=== PATIENT | female | born 1930 | race African-American/Black ===

== ENCOUNTER 2016-10-10 16:23 | Emergency (ER) | payer OTHER ==
[~2016-10-10] VITALS: Ht 152.4 cm; Wt 61.2 kg
[~2016-10-10 16:23] MED LIST: ASPIR 8181 MG PO; CATAPRES-TTS 10.1 M1 TRANSDERM; CATAPRES0.1 MG PO; CENTRUM SILVER1 EAC4 PO; EFFEXOR XR37.5 MG PO; ENOXAPARIN30 MG/0.1 SUBQ; IBUPROFEN 200200 M1 PO; INDAPAMIDE2.5 MG PO; LUTEIN20 MG PO; METAMUCIL PAC1 UDPKT PO; NORVASC10 MG PO; REMERON15 MG PO; TRAZODONE HCL100 MG PO; ULTRACET TABLET1 TAB PO; VITAMIN D 5050000 I1 PO; WELLBUTRIN 100100 MG PO; WELLBUTRIN XL300 MG PO; XALATAN2.5 ML OPHTHALMIC
[2016-10-10] MEDS ORDERED: CELEBREX 200 M200 M1 PO (16:38)
[2016-10-10] MEDS ORDERED: NORCO 5-325 TA1 EACH PO (17:57)
== END 2016-10-10 18:00 | disposition home or self-care (01) ==
LOC: ER 16:23
DX: M54.5 Low back pain (principal); M25.551 Pain in right hip; F32.9 Major depressive disorder, single episode, unspecified; I10 Essential (primary) hypertension; F10.99 Alcohol use, unspecified with unspecified alcohol-induced disorder; Z85.3 Personal history of malignant neoplasm of breast

== ENCOUNTER → 2017-01-25 | Outpatient (CLI) | payer OTHER ==
[~2017-01-25] VITALS: Ht 157.5 cm; Wt 59.0 kg
[~2017-01-25] MED LIST changes: +ASPIRIN81 M2 PO; +CELEBREX 200 M200 M1 PO; +FLUOXETINE HCL10 M1 PO; +NORCO 5-325 TA1 EACH PO; +THERA TEARS15 ML OPHTHALMIC; +TRAMADOL 50 MG50 MG PO
--- NOTE | ~2017-01-25 | HPC ---
[facility] [place] [address] PAIN MANAGEMENT CONSULTATION Name: LIBRADOMENIC PHAM Room #: REG [facility] Randal.#: [id number] Admission: 01/25/17 Attend Phys: Charisma Chahal MD Discharge: Date of : 30 Report #: [id number] THIS REPORT FOR: //name// CC: Charisma Marte DATE OF SERVICE: 01/25/2017 PRIMARY CARE PHYSICIAN: Meche Marte M.D. CHIEF COMPLAINT: Pain in the back with pain radiating down into the ankles. HISTORY OF PRESENT ILLNESS: The patient is an 86-year-old female who has been referred to the Pain Clinic for evaluation. She has been experiencing pain which has been quite problematic. Radiates down her low back area into the left leg. She had a fall in 2017. She experienced some pain in her right hip after the fall. She has found that ice and analgesics sometimes are helpful. Pain is exacerbated with walking. She describes it as an aching sensation with sharp components. She rates it as a 10/10 when it is present. ALLERGIES: No known drug allergies. MEDICATIONS: Tramadol 50 mg b.i.d., Xalatan 0.005 drops ophthalmic, TheraTears drops daily, Remeron 15 mg at bedtime, fluoxetine 10 mg daily, Celebrex ____ capsules 100 mg daily, multivitamins, trazodone 100 mg at bedtime, amlodipine 10 mg daily, aspirin 81 mg tablet. PAST MEDICAL HISTORY: Hypertension, cancer, joint disease/arthritis, depression, hyperlipidemia, anxiety disorder, atherosclerotic heart disease, and anorexia nervosa. PAST SURGICAL HISTORY: Breast lumpectomy. SOCIAL HISTORY: She is a retired teacher. She is not working at this juncture. REVIEW OF SYSTEMS: Fatigue, weakness, wears glasses, glaucoma/cataracts. Otherwise, unremarkable. LABORATORY DATA: 1. CT scan dated 10/10/2016 reveals right hip and back pain after a fall. Impression: No evidence of occult fracture. 2. Moderate arthrosis of both hip joints. 3. Lower lumbar spondylosis. 4. Scattered hepatic cyst, which are incompletely visualized. 5. Examination CT lumbar spine, history of back pain after a fall: [address] [address] PAIN MANAGEMENT CONSULTATION Name: DOMENIC MARTE Room #: REG STANISLAV Devine#: [id number] Admission: 01/25/17 Attend Phys: Charisma Chahal MD Discharge: Date of : 30 Report #: [id number] a. 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 b. Advanced left eccentric degenerative disk disease and disk space narrowing at L3-L4 and L4-L5 with vacuum phenomena. c. Severe degenerative disk disease and disk space narrowing at L5-S1 with prominent right anterior lateral osteophytosis. d. There is advanced central canal and bilateral foraminal stenosis at L4-L5 related to the listhesis and advanced facet arthrosis. e. Less pronounced mild to moderate canal and bilateral foraminal narrowing at L3-L4. PHYSICAL EXAMINATION: Blood pressure 143/80, pulse 60, respiratory rate 16, room air saturation 98%. Height 5 feet 2 inches, weight 130 pounds, BMI is 23. The patient complains of pain and discomfort in the lower portion of her back. Pain is exacerbated when she stands. It improves when she sits. Notes walking and leaning on a cart while shopping is helpful in decreasing pain and discomfort. Experiences pain that is radiating down in the left L5-S1 distribution of her legs. Notes pain and discomfort when standing doing activities of daily living at home. Pain improves after sitting down within about 5 minutes. The patient has some curvature of the lower portion of her spine consistent with that noted in the CT scan. IMPRESSION: 1. Lumbar radiculopathy with pain radiating down the L5-S1 distribution of her legs with history of spinal stenosis. 2. Hypertension. 3. History of breast cancer, status post lumpectomy. 4. Glaucoma. 5. Depression. RECOMMENDATIONS: We discussed treatment options with the patient and her . Risks and benefits of an epidural steroid injection were discussed. Her CT scan was reviewed. A model was used to indicate the area of probable pathology. The patient states that she understands. We will proceed with an epidural steroid injection. Risks and benefits of the procedure were discussed. They include but are not limited to infection, increased muscle soreness, headache, bleeding, nerve damage and worsening of pain. She elects to proceed. PROCEDURE NOTE: The patient was placed in the prone position. Fluoroscopy was used to identify the L5/S1 interspace. This area had been sterilely prepped with Betadine and infiltrated with 0.25% bupivacaine. A total of 80 mg Depo-Medrol, 40 mg triamcinolone and 2 mL of 0.25% bupivacaine was injected. The patient tolerated the procedure well. She will follow up in the near [address] [address] PAIN MANAGEMENT CONSULTATION Name: DOMENIC MARTE Room #: NASIR Tee.#: [id number] Admission: 01/25/17 Attend Phys: Charisma Chahal MD Discharge: Date of : 30 Report #: [id number] future. We would like to thank you for letting us participate in her care. We hope she continues to improve. <ELECTRONICALLY SIGNED> By: Charisma Chahal MD 01/31/17 0945 [id number] [id number] Charisma Chahal MD /BRAD
[2017-01-25 08:13] VITALS: BP 143/80
== END | disposition home or self-care (01) ==
LOC: PAIN 06:56
DX: M54.16 Radiculopathy, lumbar region (principal); M48.061 Spinal stenosis, lumbar region without neurogenic claudication; I10 Essential (primary) hypertension; I25.10 Atherosclerotic heart disease of native coronary artery without angina pectoris; E78.5 Hyperlipidemia, unspecified; M19.90 Unspecified osteoarthritis, unspecified site; H40.9 Unspecified glaucoma; F32.89 Other specified depressive episodes; F41.8 Other specified anxiety disorders; Z98.890 Other specified postprocedural states; Z85.3 Personal history of malignant neoplasm of breast; Z79.899 Other long term (current) drug therapy; Z79.82 Long term (current) use of aspirin

== ENCOUNTER → 2017-02-20 | Outpatient (CLI) | payer OTHER ==
[~2017-02-20] VITALS: Ht 157.5 cm; Wt 71.3 kg
--- NOTE | ~2017-02-20 | HPC ---
[facility] [place] [address] PAIN MANAGEMENT CONSULTATION Name: DOMENIC AMRTE Room #: REG Amanda Tee.#: [id number] Admission: 02/20/17 Attend Phys: Charisma Chahal MD Discharge: Date of : 30 Report #: [id number] THIS REPORT FOR: //name// CC: Charisma Marte DATE OF SERVICE: 02/20/2017 CHIEF COMPLAINT: "It was quite helpful, but I am still having some pain down in the lower back and leg. I would like to get another injection." FOLLOWUP HISTORY: The patient is a very pleasant 86-year-old female who has been seen in the Pain Clinic because of lumbar radiculopathy. She has undergone an epidural steroid injection. She notes that her pain has improved as a result of that. She is more active with less discomfort. She still feels that she is having some discomfort in the lower portion of her back and left leg was the most problematic, but still has some pain and discomfort down into the right leg. She has not fallen since we saw her last. She has returned today with the request of another epidural steroid injection. Given that she did prove to the degree that she did, she would like to have another injection and see if her pain level would continue to improve and be maintained. She has had no bowel or bladder dysfunction. She had no complications as a result of the last injection. ALLERGIES: No known drug allergies. MEDICATIONS: Tramadol 50 mg b.i.d., Xalatan 0.005% tears eyedrops, Remeron 15 mg at bedtime, fluoxetine 10 mg daily, Celebrex 200 mg daily, Centrum tablets, trazodone 100 mg at bedtime, Norvasc 10 mg, aspirin 81 mg. PHYSICAL EXAMINATION: VITAL SIGNS: Blood pressure 141/93, pulse 62, respiratory rate 18, room air saturation 98%. Height 5 feet 2 inches, weight 157 pounds, BMI is 28. HEAD: Atraumatic. NECK: No JVD. EXTREMITIES: The patient walks with a slightly antalgic gait. Notes some exacerbation of her back when she stands erect. Has pain radiating down into the L5-S1 distribution of her legs, left greater than right. Has some curvature on the lower portion of her back spine. IMPRESSION: 1. Lumbar radiculopathy with pain radiating down the L5-S1 distribution of her legs and history of spinal stenosis. 2. Hypertension. 3. History of breast cancer, [place] [address] PAIN MANAGEMENT CONSULTATION Name: DOMENIC MARTE Room #: REG STANISLAV Devine#: [id number] Admission: 02/20/17 Attend Phys: Charisma Chahal MD Discharge: Date of : 30 Report #: [id number] 4. Glaucoma. 5. Depression. RECOMMENDATIONS: We discussed treatment options with the patient. Risks and benefits of an epidural steroid injection were again reviewed. Possible complications, which could include but are not limited to infection, increased muscle soreness, headache, bleeding, nerve damage, spinal headache were discussed. The patient states that her has had fallen today. He is in the Emergency Room. Overall, she feels that he is doing reasonably well. She would like to undergo an epidural steroid injection today. Risks are understood and she would like to proceed. PROCEDURE NOTE: The patient was placed in the prone position. Her back was sterilely prepped with a Betadine solution. 0.25% bupivacaine was infiltrated into this area. A 17-gauge Tuohy with loss of resistance technique was used to gain access to the epidural space. Fluoroscopy using an anterior, posterior and lateral positioning were noted. After appropriate placement, a total of 80 mg Depo-Medrol, 40 mg triamcinolone and 2 mL of 0.25% bupivacaine was injected after the patient's epidural space was reached. There was no CSF, heme or paresthesia. A Band-Aid was placed in the injection site. There was no bleeding. She remained in the recovery room for an appropriate amount of time. She will call us if she has any problems. We would like to thank you for letting us participate in her care. Hopefully, her does well to today. <ELECTRONICALLY SIGNED> By: Charisma Chahal MD 03/15/17 1332 [id number] [id number] Charisma Chahal MD /[facility]
[2017-02-20 09:54] VITALS: BP 141/93
== END | disposition home or self-care (01) ==
LOC: PAIN 06:55
DX: M54.16 Radiculopathy, lumbar region (principal); I10 Essential (primary) hypertension; F32.89 Other specified depressive episodes; H40.9 Unspecified glaucoma; Z85.3 Personal history of malignant neoplasm of breast; Z79.899 Other long term (current) drug therapy; Z79.82 Long term (current) use of aspirin

== ENCOUNTER → 2017-05-15 | Outpatient (CLI) | payer OTHER ==
[~2017-05-15] VITALS: Ht 152.4 cm; Wt 73.6 kg
--- NOTE | ~2017-05-15 | HPC ---
[facility] [place] [address] PAIN MANAGEMENT CONSULTATION Name: DOMENIC SMYTH Room #: REG [facility] Randal.#: [id number] Admission: 05/15/17 Attend Phys: Charisma Chahal MD Discharge: Date of : 30 Report #: [id number] THIS REPORT FOR: //name// CC: Charisma Smyth DATE OF SERVICE: 05/15/2017 FOLLOWUP COMPLAINT: "The pain has recurred and I would like to have another injection." FOLLOWUP HISTORY: The patient is an 86-year-old female, who has been seen in the Pain Clinic because of lumbar radiculopathy. She has undergone epidural steroid injection and gleaned benefits from this. She returns today indicating that her pain has increased. She rates it as a 10/10. It involves the lower portion of her back with pain radiating down into her buttocks on both sides and involving her ankles. Epidural steroid injections in the past have been beneficial. Noted improved standing, walking and bending after that treatment. She has noted now that her pain has returned and is having problems with standing, walking and bending at this juncture. She has an aching sensation in the lower portion of her back as well as some tingling down into both legs and involving her ankles and buttocks areas. She would like to proceed with another epidural steroid injection. ALLERGIES: No known drug allergies. CURRENT MEDICATIONS: Include Tramadol 50 mg 1 p.o. b.i.d., Xalatan 0.005% 2.5 drops ophthalmic solution at bedtime, TheraTears 15 mL 1 drop in both eyes b.i.d., Remeron 15 mg at bedtime, fluoxetine 10 mg every morning, Celebrex 200 mg daily, Centrum Silver 1 tablet daily, trazodone 100 mg at bedtime, amlodipine/Norvasc 5 mg daily, aspirin 81 mg daily. PHYSICAL EXAMINATION: GENERAL: The patient is a well-developed female. She appears her stated age. She is alert and oriented x 3. Affect appears appropriate. Speech is fluent. HEENT: Normocephalic, atraumatic. Extraocular eye muscles intact. Hearing is within normal limits. Sclerae are clear. Membranes are moist. NECK: Without adenopathy or JVD. HEART: Regular rate. ABDOMEN: Nontender. MUSCULOSKELETAL: Upper extremities: Judged to be 5/5 for the major muscle groups in the upper extremities. Lower extremities: The patient is having pain and discomfort with radiation down into her back with a slight antalgic walk. Uses her hands to move from the sitting to the standing position. Notes the pain is radiating down the L5-S1 distribution in her legs. The patient has some [address] [address] PAIN MANAGEMENT CONSULTATION Name: DOMENIC SMYTH [facility] [id number] Admission: 05/15/17 Attend Phys: Charisma Chahal MD Discharge: Date of : 30 Report #: [id number] curvature of her low back and spine area. IMPRESSION: 1. Lumbar radiculopathy with pain radiating down the L5-S1 distribution of her legs with history of spinal stenosis. 2. Hypertension. 3. History of breast cancer, status post lumpectomy. 4. Glaucoma. 5. Depression. RECOMMENDATIONS: We discussed treatment options with the patient. Risks and benefits of an epidural steroid injection were again reviewed. Possible complications were discussed. The patient elects to proceed. PROCEDURE NOTE: Risks and benefits of the injection were discussed. They include but are not limited to infection, increased muscle soreness, headache, bleeding, nerve damage, and the patient elects to proceed. The patient was placed in the prone position. Fluoroscopy was used to identify the L5-S1 interspace. This area had been sterilely prepped with Betadine and infiltrated with 0.25% bupivacaine. Total of 80 mg Depo-Medrol, 40 mg triamcinolone, and 2 mL of 0.25% bupivacaine was injected. The patient tolerated the procedure well. There were no complications. She remained in the Pain Clinic for an appropriate amount of time. She will follow up in the future as needed. We would like to thank you for letting us participate in her care. We hope she continues to improve. By: [id number] Charisma Chahal MD /nt
[2017-05-15 08:09] VITALS: BP 137/79
== END | disposition home or self-care (01) ==
LOC: PAIN 05-03 13:56
DX: M54.16 Radiculopathy, lumbar region (principal); G89.29 Other chronic pain; I10 Essential (primary) hypertension; H40.9 Unspecified glaucoma; F32.9 Major depressive disorder, single episode, unspecified; Z85.3 Personal history of malignant neoplasm of breast; Z79.899 Other long term (current) drug therapy; Z79.82 Long term (current) use of aspirin; Z98.890 Other specified postprocedural states

== ENCOUNTER → 2017-09-04 | Outpatient (CLI) | payer OTHER ==
[~2017-09-04] VITALS: Ht 152.4 cm; Wt 73.0 kg
--- NOTE | ~2017-09-04 | HPC ---
[facility] [place] [address] PAIN MANAGEMENT CONSULTATION Name: DOMENIC MARTE [id number] Admission: 09/04/17 Attend Phys: Charisma Chahal MD Discharge: Date of : 30 Report #: [id number] THIS REPORT FOR: //name// CC: Charisma Marte MD DATE OF SERVICE: 09/04/2017 FOLLOWUP COMPLAINT: Pain has started to recurred and I would like to have another injection. FOLLOWUP HISTORY: The patient is an 86-year-old female who has been followed in the pain clinic because of lumbar radiculopathy. She has undergone epidural steroid injections in the low back area. She has noted improvement after each treatment. She has noted some worsening of her pain and discomfort over the last few months. She rates her pain as a 10/10. She notes that the pain is worse in the morning. It is exacerbated by standing, walking, and bending. It radiates down the posterior portion of both of her legs involving her buttocks and down into the ankles. She feels that the past epidural steroid injections were beneficial. She would like to proceed with another injection. Continues to use tramadol to help with the pain, find Celebrex beneficial as well. ALLERGIES: No known drug allergies. CURRENT MEDICATIONS: Tramadol 50 mg 1 p.o. b.i.d., Xalatan 0.005 of 2.5 drops ophthalmic solution at bedtime, TheraTears - drops in both eyes, Remeron 15 mg at bedtime, fluoxetine 10 mg q.a.m., Celebrex 200 mg, Centrum Silver 1 tablet, trazodone 100 mg at bedtime, amlodipine/Norvasc 5 mg, and aspirin 81 mg. PHYSICAL EXAMINATION: GENERAL: The patient is well-developed, well-nourished black female. She appears her stated age. She is alert and oriented x 3. Speech is fluent. HEENT: Mucous membranes are moist. NECK: Without adenopathy or JVD. HEART: Regular rate. ABDOMEN: Nontender. MUSCULOSKELETAL: Upper extremity judged to be 5/5 for the major muscle groups without neurologic changes. Lower extremity, the patient is having pain and discomfort with pain radiating down the L5-S1 dermatomal distribution of her legs bilaterally. Notes some difficulty with standing. Use her hands to go from a sitting to a standing position. The patient without significant lordosis kyphosis, or scoliosis. PAIN CLINIC EVALUATION: 1. History of osteoarthritis. The [place] [address] PAIN MANAGEMENT CONSULTATION Name: DOMENIC MARTE Room #: REG [facility] AlbaGrace#: [id number] Admission: 09/04/17 Attend Phys: Charisma Chahal MD Discharge: Date of : 30 Report #: [id number] osteoarthritis or rheumatoid arthritis. 2. Height 5 feet 0 inches, weight 161 pounds, BMI 31.4. 3. Vital signs: Blood pressure 146/98, pulse 72, respiratory rate 16, room air saturation 97%. 4. Pain intensity 10/10. 5. Fall risk. The patient has not fallen in the last 3 months. 6. Blood thinner. The patient is not on a blood thinning medication. 7. History of hypertension. The patient is being treated for hypertension. 8. Opioid therapy greater than 6 weeks. The patient is not on an opioid regimen. 9. Risk assessment tool, low risk for use of opioids. 10. Functional assessment tool. 11. Recreational drug use. The patient denies use of recreational drugs. 12. Tobacco: The patient has never smoked. 13. Alcohol: The patient occasionally uses alcoholic beverages. IMPRESSION: 1. Lumbar radiculopathy involving the L5-S1 distribution with pain radiating down to her legs in the posterior area bilaterally. 2. Hypertension. 3. Breast cancer, status post lumpectomy. 4. Glaucoma. 5. Depression. RECOMMENDATIONS: We discussed treatment options with the patient. She has received good benefit from epidural steroid injections in the past. She has returned today with note of increased pain and discomfort, which is radiating down the posterior portion of her legs with numbness, weakness, and tenderness. She would like to proceed with another epidural steroid injection. Risks and benefits of the procedure were again reviewed. They include but are not limited to infection, increased muscle soreness, headache, bleeding, worsening of pain, no improvement in pain, and nerve damage. PROCEDURE NOTE: The patient was taken to the procedure room. She was assisted in getting on the fluoroscopy table. Her back was sterilely prepped with a Betadine solution. She in the prone position. Fluoroscopy using the anterior, posterior as well as lateral viewing were used to identify the L5-S1 area. This area had been sterilely prepped with Betadine and infiltrated with 0.25% bupivacaine. A 17-gauge Tuohy with loss of resistance technique was used to gain access to the epidural space. There was no CSF, heme or paresthesia. Total of 80 mg of Depo-Medrol, 40 mg triamcinolone and 2 mL of 0.25% bupivacaine was injected. The patient tolerated the procedure well. There were no complications. She remained in the pain clinic for an appropriate amount of [address] [address] PAIN MANAGEMENT CONSULTATION Name: DOMENIC MARTE Room #: REG STANISLAV Devine#: [id number] Admission: 09/04/17 Attend Phys: Charisma Chahal MD Discharge: Date of : 30 Report #: [id number] time. We would like to thank you for letting us participate in her care. Hope she continues to improve. <ELECTRONICALLY SIGNED> By: Charisma Chahal MD 09/06/17 1631 [id number] Charisma Chahal MD /PMT
[2017-09-04 08:08] VITALS: BP 146/98
== END | disposition home or self-care (01) ==
LOC: PAIN 06:24
DX: M54.16 Radiculopathy, lumbar region (principal); G89.29 Other chronic pain; I10 Essential (primary) hypertension; M10.9 Gout, unspecified; F32.9 Major depressive disorder, single episode, unspecified; Z85.3 Personal history of malignant neoplasm of breast; Z79.899 Other long term (current) drug therapy; Z79.82 Long term (current) use of aspirin

== ENCOUNTER → 2018-02-19 | Outpatient (CLI) | payer OTHER ==
[~2018-02-19] VITALS: Ht 152.4 cm; Wt 75.1 kg
[~2018-02-19] MED LIST changes: +HYDROCODON-ACE1 EAC7 PO; +NEURONTIN 300300 M1 PO
--- NOTE | ~2018-02-19 | HPC ---
[facility] [place] [address] PAIN MANAGEMENT CONSULTATION Name: DOMENIC MARTE Room #: REG [facility] M.R.#: [id number] Admission: 02/19/18 Attend Phys: Charisma Chahal MD Discharge: Date of : 30 Report #: [id number] THIS REPORT FOR: //name// CC: Charisma Marte DATE OF SERVICE: 02/19/2018 FOLLOWUP COMPLAINT: Here for an injection and evaluation. HISTORY: The patient is an 87-year-old female who has been seen in the Pain Clinic because of lumbar radiculopathy. She has undergone epidural steroid injections in the past and gleaned benefit from these. She has noticed a recurrence of pain and discomfort in the low back area with pain that is radiating down into the L5-S1 dermatomal distribution bilaterally. She rates her pain as a 10/10. She has felt that the Mobic nonsteroidal anti-inflammatory medication is less effective. She has not had any problems with her GI. She also finds that tramadol was less effective at this juncture. She would like to undergo an epidural steroid injection and have changes medications to help control her pain and discomfort. ALLERGIES: No known drug allergies. CURRENT MEDICATIONS: Tramadol 50 mg 1 p.o. b.i.d., Xalatan 0.005, 2.5 drops ophthalmic solution at bedtime, Thera tears drops both eyes, Remeron 15 mg at bedtime, fluoxetine 10 mg q.a.m., Celebrex 200 mg, Centrum Silver one tablet, trazodone 100 mg at bedtime, amlodipine/Norvasc 5 mg, aspirin 81 mg. PHYSICAL EXAMINATION: GENERAL: The patient is a well-developed, well-nourished black female. Appears her stated age. She is alert and oriented x 3. Affect is appropriate. Speech is fluent. HEENT: Normocephalic, atraumatic. Extraocular eye muscles intact. Sclerae nonicteric. HEART: Heart rate is regular. ABDOMEN: Nontender. MUSCULOSKELETAL: Upper extremity is judged to be 5-/5 for the major muscle groups in the upper extremity. The patient has pain and discomfort in lower portion of her back with pain that is radiating down the L5-S1 dermatomal distribution involving her legs bilaterally. Has some difficulty with standing. Uses hands to go from a sitting to a standing position in the exam room. The patient is without significant lordosis kyphosis. PAIN CLINIC ASSESSMENT/HISTORY: 1. Osteoarthritis. The patient is not being treated for osteoarthritis or rheumatoid arthritis. 2. Height 5 feet 0 inches, weight 165 pounds, BMI [place] 32.3[place] [address] PAIN MANAGEMENT CONSULTATION Name: LIBRADOMENICLEVI NATH Room #: REG [facility] Devine#: [id number] Admission: 02/19/18 Attend Phys: Charisma Chahal MD Discharge: Date of : 30 Report #: [id number] 3. Vital signs: Blood pressure 131/78, pulse 55, respiratory rate 18, room air saturation 97%. 4. Pain intensity /10. 5. Fall risk. The patient has not fallen in the last 3 months. 6. Blood thinner. The patient is not on blood thinning medication. 7. Hypertension. The patient is being treated for hypertension. 8. Opioids greater than 6 weeks. The patient is not on a regular opioid medication and has been using tramadol. 9. Risk assessment tool, low 2/3 for opioid use. 10. Functional assessment tool. 11. Recreational drug use. The patient denies use of recreational drugs. 12. Tobacco: The patient has never smoked. 13. Alcohol: The patient rarely uses alcoholic beverages. IMPRESSION: 1. Lumbar radiculopathy involving L5 and S1 dermatomal distribution bilaterally with pain radiating down the posterior portion of her legs bilaterally. 2. Hypertension. 3. Breast cancer status post lumpectomy. 4. Glaucoma. 5. Depression. RECOMMENDATIONS: We discussed treatment options with the patient. Risks and benefits of an epidural steroid injection were again discussed. Possible complications of the procedure, which could include but are not limited to infection, worsening of pain, no improvement in pain, nerve damage, paralysis and the patient elects to proceed. We also discussed the use of a low dose of hydrocodone. The patient feels that her pain medications are less effective. She is less able to engage in activities of daily living because of this. We have discussed the use of opioid medications and the repercussions. There is possibility of addiction as well as the possibility of constipation and tolerance with use of these medications. We will start the patient ____ 5 mg 1 p.o. t.i.d. as needed. She will call us if she has any concerns. We would like to thank you for letting us participate in her care. We hope she continues to improve. By: [id number] Charisma Chahal MD /nt
[2018-02-19 10:09] VITALS: BP 131/78
--- NOTE | 2018-02-19 10:13 | NUR ---
Pain Clinic Assessment: 1. History of Osteoarthritis: Not Applicable History of Rheumatoid Arthritis: Not Applicable 2. Height: 5 ft. 0 in. 152.4 cm. Weight: 165.6 lb. oz. 75.116 kg. Patient's BMI: 32.3 3. Vital Signs: BP: 131/78 Pulse: 55 Resp: 18 Temp: 02 Sat: 97 ECG Mon: 4. Pain Intensity: 10 5. Fall Risk: Dizziness: N Needs help standing or walking: N Fallen in the last 3 months: N Fall risk comments: 6. Patient on Blood Thinner: None 7. History of Hypertension: Y 8. Opioid Therapy greater than 6 weeks: N Opiate Contract Signed: 9. Risk Assessment Tool Provided: LOW RISK 2/3 10. Functional Assessment Tool: 11. Recreational Drug Use: Never Drug Type: Tobacco Use: Never Smoker Tobacco Type: Amount or Packs/day: How Many Years: Alcohol Use: Yes Frequency: Quant:
== END | disposition home or self-care (01) ==
LOC: PAIN 06:58
DX: M54.16 Radiculopathy, lumbar region (principal); I10 Essential (primary) hypertension; H40.9 Unspecified glaucoma; F32.9 Major depressive disorder, single episode, unspecified; M19.90 Unspecified osteoarthritis, unspecified site; Z85.3 Personal history of malignant neoplasm of breast; Z79.899 Other long term (current) drug therapy; Z79.82 Long term (current) use of aspirin

== ENCOUNTER → 2018-12-31 | Outpatient (CLI) | payer OTHER ==
[~2018-12-31] VITALS: Ht 152.4 cm; Wt 71.8 kg
[2018-12-31 09:06] VITALS: BP 127/84
--- NOTE | 2018-12-31 09:26 | NUR ---
Pain Clinic Assessment: 1. History of Osteoarthritis: SPINE KNEES WRISTS History of Rheumatoid Arthritis: DENIES 2. Height: 5 ft. 0 in. 152.4 cm. Weight: 158.4 lb. oz. 71.850 kg. Patient's BMI: 30.9 3. Vital Signs: BP: 127/84 Pulse: 76 Resp: 20 Temp: 02 Sat: 99 ECG Mon: 4. Pain Intensity: 10 5. Fall Risk: Dizziness: N Needs help standing or walking: N Fallen in the last 3 months: N Fall risk comments: 6. Patient on Blood Thinner: None 7. History of Hypertension: Y 8. Opioid Therapy greater than 6 weeks: N Opiate Contract Signed: 9. Risk Assessment Tool Provided: LOW RISK 1 10. Functional Assessment Tool: 64/70 11. Recreational Drug Use: Never Drug Type: Tobacco Use: Never Smoker Tobacco Type: Amount or Packs/day: How Many Years: Alcohol Use: Yes Frequency: Special Occasions Quant:
--- NOTE | 2019-01-20 21:49 | HPC ---
[facility] [place] [address] PAIN MANAGEMENT CONSULTATION Name: LIBRADOMENIC PHAM Room #: REG Amanda Devine#: [id number] Admission: 12/31/18 Attend Phys: Charisma Chahal MD Discharge: Date of : 30 Report #: [id number] THIS REPORT FOR: //name// CC: Charisma Marte DATE OF SERVICE: 12/31/2018 CHIEF COMPLAINT: "Pain has returned and I would like to have another injection." HISTORY: The patient is an 88-year-old female who has been seen in the pain clinic. She suffers from lumbar radiculopathy. She has undergone epidural steroid injections in the past. She has found these to be quite beneficial. She has noticed that her pain has increased. She was not aware that she could undergo an epidural injection at this juncture. She is aware that the injections are beneficial. She has returned to the pain clinic with a desire to undergo an injection at this point in time. She feels that the nonsteroidal anti-inflammatory medications are helpful, but not as effective as the injections. She is not having any GI problems with her medications. ALLERGIES: No known drug allergies. CURRENT MEDICATIONS: Xalatan eyedrops, TheraTears one drop both eyes, Remeron 15 mg, fluoxetine 10 mg, Celebrex 100 mg daily, trazodone 100 mg, amlodipine 10 mg and aspirin 81 mg. PAIN CLINIC ASSESSMENT AND PQRS: 1. History of osteoarthritis with arthritic changes in her spine, knees, wrists. The patient is not being treated for rheumatoid arthritis. 2. Height 5 feet 10 inches, weight 158 pounds, BMI is 30.9. 3. Vital signs: Blood pressure 127/84, pulse 76, respiratory rate 20, room air saturation 99%. 4. Pain intensity 10/10. 5. Fall history: The patient has not fallen in the last 3 months. 6. Blood thinner. The patient is not on a blood thinning medication. 7. Hypertension. The patient is being treated for hypertension. 8. Opioids greater than 6 weeks. The patient is receiving medications from her primary. 9. Risk assessment tool, low for opioid use. 10. Functional assessment tool 64/70. 11. Recreational drug use: The patient denies. 12. Tobacco: The patient has never smoked. 13. Alcohol: The patient drinks alcoholic beverages on special occasions. PHYSICAL EXAMINATION: [facility] [address] [place] [address] PAIN MANAGEMENT CONSULTATION Name: DOMENIC MARTE Room #: REG CLI [facility]#: [id number] Admission: 12/31/18 Attend Phys: Charisma Chahal MD Discharge: Date of : 30 Report #: [id number] GENERAL: The patient is a well-developed, well-nourished black female, appears her stated age. She is alert and oriented x 3. Her affect is appropriate. Speech is fluent. She is unaccompanied. HEENT: Normocephalic, atraumatic. Extraocular eye muscles intact. Sclerae nonicteric. Mucous membranes are moist. HEART: Regular rate. ABDOMEN: Nontender. EXTREMITIES: Upper extremity muscle strength judged to be 5-/5 for the major muscle groups in the upper extremity. The patient has pain and discomfort in lower portion of her back with pain that is radiating down the L5-S1 dermatomal distribution with numbness, weakness and sensory changes in the lower extremities. Has some difficulty with prolonged standing. Uses her hands to go from a sitting to a standing position in the exam room. IMPRESSION: 1. Lumbar radiculopathy involving the L5-S1 dermatomal distribution bilaterally with pain down into the posterior portion of her legs bilaterally. 2. Hypertension. 3. Breast cancer, status post lumpectomy. 4. Glaucoma. 5. Depression. RECOMMENDATIONS: We discussed treatment options with the patient. Risks and benefits of an epidural steroid injection were again discussed. Possible complications of the procedure, which could include but are not limited to infection, worsening of pain, no improvement in pain and the patient elects to proceed. PROCEDURE NOTE: The patient was taken to the procedure area. She was then assisted in getting on the examination table. Her back was sterilely prepped with a Betadine solution. Fluoroscopy using anterior, posterior as well as lateral viewing were implemented. This area was then infiltrated with 0.25% bupivacaine to anesthetize it. A 17-gauge Tuohy with loss of resistance technique was used to gain access to the epidural space. There was no CSF, heme or paresthesia. Total of 80 mg of Depo-Medrol, 40 mg of triamcinolone and 2 mL of 0.25% bupivacaine was injected. The patient's pain decreased to 0 at the time of discharge, but down from 10. She will follow up in the future as needed. We would like to thank you for letting us participate in her care. We hope she continues to improve. <ELECTRONICALLY SIGNED> By: Charisma Chahal MD 01/20/19 [id number] [id number] [id number] Charisma Chahal MD /BRAD
== END | disposition home or self-care (01) ==
LOC: PAIN 07:02
DX: M54.16 Radiculopathy, lumbar region (principal); Z98.890 Other specified postprocedural states; Z79.82 Long term (current) use of aspirin; Z79.899 Other long term (current) drug therapy

== ENCOUNTER → 2019-02-25 | Outpatient (CLI) | payer OTHER ==
[~2019-02-25] VITALS: Ht 157.5 cm; Wt 73.6 kg
[2019-02-25 10:26] VITALS: BP 123/77
--- NOTE | 2019-02-25 10:32 | NUR ---
Pain Clinic Assessment: 1. History of Osteoarthritis: SPINE KNEES WRISTS History of Rheumatoid Arthritis: DENIES 2. Height: 5 ft. 2 in. 157.5 cm. Weight: 162.2 lb. oz. 73.573 kg. Patient's BMI: 29.7 3. Vital Signs: BP: 123/77 Pulse: 58 Resp: 18 Temp: 02 Sat: 98 ECG Mon: 4. Pain Intensity: 8-9 5. Fall Risk: Dizziness: N Needs help standing or walking: N Fallen in the last 3 months: N Fall risk comments: 6. Patient on Blood Thinner: None 7. History of Hypertension: Y 8. Opioid Therapy greater than 6 weeks: N Opiate Contract Signed: 9. Risk Assessment Tool Provided: LOW RISK 1 10. Functional Assessment Tool: 64/70 11. Recreational Drug Use: Never Drug Type: Tobacco Use: Never Smoker Tobacco Type: Amount or Packs/day: How Many Years: Alcohol Use: Yes Frequency: Quant:
== END | disposition home or self-care (01) ==
LOC: PAIN 07:50
DX: M54.16 Radiculopathy, lumbar region (principal); G89.29 Other chronic pain; I10 Essential (primary) hypertension; F32.9 Major depressive disorder, single episode, unspecified; Z98.890 Other specified postprocedural states; Z79.899 Other long term (current) drug therapy; Z79.82 Long term (current) use of aspirin

== ENCOUNTER → 2019-06-17 | Outpatient (CLI) | payer OTHER ==
[~2019-06-17] VITALS: Ht 152.4 cm; Wt 75.8 kg
[2019-06-17 13:17] VITALS: BP 106/64
--- NOTE | 2019-06-17 13:50 | NUR ---
Pain Clinic Assessment: 1. History of Osteoarthritis: SPINE KNEES WRISTS History of Rheumatoid Arthritis: DENIES 2. Height: 5 ft. 0 in. 152.4 cm. Weight: 167.0 lb. oz. 75.751 kg. Patient's BMI: 32.6 3. Vital Signs: BP: 106/64 Pulse: 63 Resp: 14 Temp: 02 Sat: 98 ECG Mon: 4. Pain Intensity: 7 5. Fall Risk: Dizziness: N Needs help standing or walking: N Fallen in the last 3 months: N Fall risk comments: 6. Patient on Blood Thinner: None 7. History of Hypertension: Y 8. Opioid Therapy greater than 6 weeks: N Opiate Contract Signed: 9. Risk Assessment Tool Provided: LOW RISK 1 10. Functional Assessment Tool: 64/70 11. Recreational Drug Use: Never Drug Type: Tobacco Use: Never Smoker Tobacco Type: Amount or Packs/day: How Many Years: Alcohol Use: Yes Frequency: Quant:
== END | disposition home or self-care (01) ==
LOC: PAIN 06:47
DX: M54.16 Radiculopathy, lumbar region (principal); G89.29 Other chronic pain; F32.9 Major depressive disorder, single episode, unspecified; M19.90 Unspecified osteoarthritis, unspecified site; Z98.890 Other specified postprocedural states; Z79.899 Other long term (current) drug therapy

== ENCOUNTER → 2019-10-07 | Outpatient (CLI) | payer OTHER ==
[~2019-10-07] VITALS: Ht 152.4 cm; Wt 75.0 kg
[2019-10-07 09:28] VITALS: BP 132/77
--- NOTE | 2019-10-07 09:38 | NUR ---
Pain Clinic Assessment: 1. History of Osteoarthritis: SPINE KNEES WRISTS History of Rheumatoid Arthritis: DENIES 2. Height: 5 ft. 0 in. 152.4 cm. Weight: 165.4 lb. oz. 75.025 kg. Patient's BMI: 32.3 3. Vital Signs: BP: 132/77 Pulse: 75 Resp: 16 Temp: 02 Sat: 98 ECG Mon: 4. Pain Intensity: 10 5. Fall Risk: Dizziness: N Needs help standing or walking: N Fallen in the last 3 months: N Fall risk comments: 6. Patient on Blood Thinner: None 7. History of Hypertension: Y 8. Opioid Therapy greater than 6 weeks: N Opiate Contract Signed: 9. Risk Assessment Tool Provided: LOW RISK 1 10. Functional Assessment Tool: 64/70 11. Recreational Drug Use: Never Drug Type: Tobacco Use: Never Smoker Tobacco Type: Amount or Packs/day: How Many Years: Alcohol Use: Yes Frequency: Quant:
== END | disposition home or self-care (01) ==
LOC: PAIN 06:48
PROVIDERS: ATTEND Anesthesiology Pain Medicine
DX: M54.16 Radiculopathy, lumbar region (principal); G89.29 Other chronic pain; F32.9 Major depressive disorder, single episode, unspecified; Z98.890 Other specified postprocedural states; Z79.899 Other long term (current) drug therapy; Z79.82 Long term (current) use of aspirin

== ENCOUNTER → 2020-02-03 | Outpatient (CLI) | payer OTHER ==
[~2020-02-03] VITALS: Ht 152.4 cm; Wt 72.0 kg
[~2020-02-03] MED LIST changes: +HYDROCODON-ACE1 EAC5 PO
[2020-02-03 09:27] VITALS: BP 150/88
--- NOTE | 2020-02-03 09:53 | NUR ---
Pain Clinic Assessment: 1. History of Osteoarthritis: SPINE KNEES WRISTS History of Rheumatoid Arthritis: DENIES 2. Height: 5 ft. 0 in. 152.4 cm. Weight: 158.8 lb. oz. 72.031 kg. Patient's BMI: 31.0 3. Vital Signs: BP: 150/88 Pulse: 64 Resp: 16 Temp: 02 Sat: 98 ECG Mon: 4. Pain Intensity: 10 5. Fall Risk: Dizziness: N Needs help standing or walking: N Fallen in the last 3 months: N Fall risk comments: 6. Patient on Blood Thinner: None 7. History of Hypertension: Y 8. Opioid Therapy greater than 6 weeks: N Opiate Contract Signed: 9. Risk Assessment Tool Provided: LOW RISK 1 10. Functional Assessment Tool: 64/70 11. Recreational Drug Use: Never Drug Type: Tobacco Use: Never Smoker Tobacco Type: Amount or Packs/day: How Many Years: Alcohol Use: Yes Frequency: Quant:
== END | disposition home or self-care (01) ==
LOC: PAIN 06:48
PROVIDERS: ATTEND Anesthesiology Pain Medicine
DX: M54.16 Radiculopathy, lumbar region (principal); G89.29 Other chronic pain; I10 Essential (primary) hypertension; F32.9 Major depressive disorder, single episode, unspecified; H40.9 Unspecified glaucoma; M19.90 Unspecified osteoarthritis, unspecified site; Z98.890 Other specified postprocedural states; Z79.899 Other long term (current) drug therapy; Z85.3 Personal history of malignant neoplasm of breast

== ENCOUNTER → 2020-08-26 | Outpatient (CLI) | payer OTHER ==
[~2020-08-26] VITALS: Ht 152.4 cm; Wt 70.4 kg
[2020-08-26 08:24] VITALS: BP 135/80
--- NOTE | 2020-08-26 08:30 | NUR ---
Pain Clinic Assessment: 1. History of Osteoarthritis: SPINE KNEES WRISTS History of Rheumatoid Arthritis: DENIES 2. Height: 5 ft. 0 in. 152.4 cm. Weight: 155.2 lb. oz. 70.398 kg. Patient's BMI: 30.3 3. Vital Signs: BP: 135/80 Pulse: 67 Resp: 18 Temp: 02 Sat: 97 ECG Mon: 4. Pain Intensity: 10 5. Fall Risk: Dizziness: N Needs help standing or walking: N Fallen in the last 3 months: N Fall risk comments: 6. Patient on Blood Thinner: None 7. History of Hypertension: Y 8. Opioid Therapy greater than 6 weeks: N Opiate Contract Signed: 9. Risk Assessment Tool Provided: LOW RISK 1 10. Functional Assessment Tool: 11. Recreational Drug Use: Never Drug Type: Tobacco Use: Never Smoker Tobacco Type: Amount or Packs/day: How Many Years: Alcohol Use: Yes Frequency: Weekly Quant: 1 GLASS WINE
== END | disposition home or self-care (01) ==
LOC: PAIN 07:11
PROVIDERS: ATTEND Anesthesiology Pain Medicine
DX: M54.16 Radiculopathy, lumbar region (principal); G89.29 Other chronic pain; I10 Essential (primary) hypertension; H40.9 Unspecified glaucoma; F32.9 Major depressive disorder, single episode, unspecified; M19.90 Unspecified osteoarthritis, unspecified site; Z98.890 Other specified postprocedural states; Z79.899 Other long term (current) drug therapy; Z79.82 Long term (current) use of aspirin